=== PATIENT | male | born 1975 | race Caucasian/White ===

== ENCOUNTER 2021-11-06 10:17 | Outpatient (RCR) | payer OTHER, SELFPAY | END 2021-12-03 23:59 | disposition home or self-care (01) | LOC: SPT 10:17 | PROVIDERS: Family Provider Nurse Practitioner; PCP Nurse Practitioner; Referring Provider Orthopaedic Surgery; Visit Provider Orthopaedic Surgery | DX: Z47.1 Aftercare following joint replacement surgery (principal); Z96.651 Presence of right artificial knee joint | CPT/HCPCS: 29581; 97110; 97161; G0283 ==

== ENCOUNTER 2021-12-04 06:00 | Outpatient (RCR) | payer OTHER, SELFPAY | END 2022-01-02 23:59 | disposition home or self-care (01) | LOC: SPT 06:00 | PROVIDERS: PCP Nurse Practitioner; Referring Provider Orthopaedic Surgery; Visit Provider Orthopaedic Surgery | DX: M17.11 Unilateral primary osteoarthritis, right knee (principal) | CPT/HCPCS: 97110; 97112; 97116; G0283 ==

== ENCOUNTER 2022-01-03 06:00 | Outpatient (RCR) | payer OTHER, SELFPAY | END 2022-02-02 23:59 | disposition home or self-care (01) | LOC: SPT 06:00 | PROVIDERS: PCP Nurse Practitioner; Referring Provider Orthopaedic Surgery; Visit Provider Orthopaedic Surgery | DX: Z47.1 Aftercare following joint replacement surgery (principal); Z96.651 Presence of right artificial knee joint | CPT/HCPCS: 97110 ==

== ENCOUNTER 2022-02-03 06:00 | Outpatient (RCR) | payer OTHER, SELFPAY | END 2022-03-05 23:59 | disposition home or self-care (01) | LOC: SPT 06:00 | PROVIDERS: PCP Nurse Practitioner; Referring Provider Orthopaedic Surgery; Visit Provider Orthopaedic Surgery | DX: Z96.651 Presence of right artificial knee joint (principal) | CPT/HCPCS: 97110 ==

== ENCOUNTER → 2024-06-17 11:17 | Outpatient (BNVA) | payer OTHER, SELFPAY | PROVIDERS: PCP Nurse Practitioner; Visit Provider Podiatrist Foot & Ankle Surgery | DX: M77.41 Metatarsalgia, right foot (principal); M77.42 Metatarsalgia, left foot; M84.375A Stress fracture, left foot, initial encounter for fracture; S99.922A Unspecified injury of left foot, initial encounter; X58.XXXA Exposure to other specified factors, initial encounter | CPT/HCPCS: 73630 ==

== ENCOUNTER 2024-06-23 06:58 | Outpatient (CLI) | payer OTHER, SELFPAY ==
--- NOTE | 2024-06-23 07:15 | MR_ITS ---
WS: [id number] MRI LEFT FOOT WITHOUT CONTRAST. COMPARISON: Radiograph 06/17/2024 Multiplanar, multisequence imaging is performed without contrast. History: Rule out plantar plate tear LEFT foot, second and third toes. There is no significant edema noted involving the marrow of the toes or metatarsal heads. No soft tis bobby edema. Normal signal throughout the plantar plate. There is a small amount of increased signal al edward the dorsal surface of the foot which is an artifact. Small amount of fluid between the third and fourth metatarsal heads. The fibrocartilaginous plantar capsule appears normal. There is no significa nt thickening. No separation of the plantar plate. No masses are identified. MR/MR foot LT wo con* [id number] IMPRESSION: 1. No signal abnormality noted involving the fibrocartilaginous plantar plate with attention to the second and third metatarsal phalangeal joints. 2. No marrow edema.
== END 2024-06-23 06:59 | disposition home or self-care (01) ==
LOC: RAD 06:58
PROVIDERS: PCP Nurse Practitioner; Visit Provider Podiatrist Foot & Ankle Surgery
DX: M84.375A Stress fracture, left foot, initial encounter for fracture (principal); S99.922A Unspecified injury of left foot, initial encounter
CPT/HCPCS: 73718

== ENCOUNTER → 2024-07-13 07:43 | Outpatient (BNVA) | payer OTHER, SELFPAY | PROVIDERS: PCP Nurse Practitioner; Visit Provider Podiatrist Foot & Ankle Surgery | DX: M25.50 Pain in unspecified joint (principal) | CPT/HCPCS: 36415; 85651; 86140; 86160; 86162; 86200; 86235; 86255; 86376; 86431 ==

== ENCOUNTER → 2025-04-04 07:18 | Outpatient (BNVA) | payer OTHER, SELFPAY | PROVIDERS: PCP Nurse Practitioner; Visit Provider Podiatrist Foot & Ankle Surgery | DX: M84.375A Stress fracture, left foot, initial encounter for fracture (principal); M77.41 Metatarsalgia, right foot; M77.42 Metatarsalgia, left foot | CPT/HCPCS: 73630 ==

== ENCOUNTER 2025-05-19 07:02 | Outpatient (CLI) | payer OTHER, SELFPAY ==
--- NOTE | 2025-05-19 07:15 | MRR_ITS ---
PROCEDURE INFORMATION: Exam: MR Left Lower Extremity Other Than Joint Without Contrast; Foot Exam date and time: 05/19/2025 7:17 AM Age: 49 years old Clinical indication: Pain; Foot; Left; Additional info: Left foot plantar plate rupture, TECHNIQUE: Imaging protocol: Magnetic resonance imaging of the left lower extremity without contrast. Exam focused on the foot. COMPARISON: MR foot LT wo con* [id number] 06/23/2024 7:08 AM FINDINGS: Bones/joints: The visible skeletal structures are unremarkable. The plantar plates are intact. No evidence of tear. LIGAMENTS: Lisfranc ligament: Lisfranc ligament is unremarkable. No evidence of tear. TENDONS: Flexor tendons of foot: The flexor tendons are unremarkable. Tibialis posterior tendon: Unremarkable as visualized. Peroneal tendons: Unremarkable as visualized. Extensor tendons of foot: The extensor tendons are unremarkable. Tibialis anterior tendon: Unremarkable as visualized. Soft tissues: The soft tissues are unremarkable. Plantar fascia: Unremarkable as visualized. MR/MR foot LT wo con* [id number] IMPRESSION: 1. No evidence plantar plate injury. 2. Unremarkable exam.
== END 2025-05-19 07:03 | disposition home or self-care (01) ==
LOC: RAD 07:06
PROVIDERS: PCP Nurse Practitioner; Visit Provider Podiatrist Foot & Ankle Surgery
DX: S99.922A Unspecified injury of left foot, initial encounter (principal); X58.XXXA Exposure to other specified factors, initial encounter
CPT/HCPCS: 73718